=== PATIENT | female | born 1965 | race Hispanic/Latino ===

== ENCOUNTER 2023-04-09 09:16 | Emergency (ER) | payer SELFPAY ==
[2023-04-09] MEDS ORDERED: Ketorolac Tromethamine 30 MG/ML VIAL ONE (09:48)
[2023-04-09] MEDS ORDERED: Ondansetron PF 4 MG/2 ML Vial ONE (09:48)
== END 2023-04-09 11:36 | disposition home or self-care (01) ==
LOC: BURERS 09:16
DX: G43.109 Migraine with aura, not intractable, without status migrainosus (principal); R29.700 NIHSS score 0; Z86.73 Personal history of transient ischemic attack (TIA), and cerebral infarction without residual deficits
CPT/HCPCS: 96374; 96375; J1885; J2405